=== PATIENT | male | born 1985 | race Caucasian/White ===

== ENCOUNTER → 2016-08-14 | Outpatient (CLI) | payer BC ==
--- NOTE | 2016-08-14 10:26 | CR ---
EXAMINATION: Two-view chest (PA and Lateral views). HISTORY: Cough. FINDINGS: The trachea is midline. The cardiomediastinal silhouette is within normal limits. There is a trace i nfiltrate noted within the left lung base. No pleural effusion or pneumothorax. Osseous structures appear unremarkable. IMPRESSION: Trace infiltrate within the left lung base, this could represent atelectasis or developing pneumonia .
== END ==
LOC: MW.CHRC 09:17
PROVIDERS: ATTEND Family Medicine
DX: R05 Cough (principal); R91.8 Other nonspecific abnormal finding of lung field
CPT/HCPCS: 71020; 71020-26

== ENCOUNTER 2025-02-22 12:45 | Emergency (ER) | payer SELFPAY ==
[2025-02-22] MEDS: Diphtheria,Pertussis(Acell),Tetanus Vaccine 0.5 ML Syringe IM ONE (13:14)
[2025-02-22] MEDS: Rabies Vaccine (Avian) 2.5 Unit Inj Kit IM ONE (13:39)
[2025-02-22] MEDS: Rabies Immune Globulin/PF (HyperRAB) 300 UNIT/ML 5 ML SDV IM ONE (13:44)
== END 2025-02-22 14:16 | disposition home or self-care (01) ==
LOC: MW.ED 12:45
DX: Z77.21 Contact with and (suspected) exposure to potentially hazardous body fluids (principal); Z23 Encounter for immunization
CPT/HCPCS: 90375; 90471; 90472; 90675; 90715; 96372; 99283-25; 99284